=== PATIENT | female | born 1935 | race Caucasian/White ===

== ENCOUNTER → 2017-01-28 | Outpatient (CLI) | payer MEDICARE, OTHER | END | disposition home or self-care (01) | LOC: PCVCCLINIC 16:00 | PROVIDERS: ATTEND Internal Medicine | DX: I45.5 Other specified heart block (principal); E78.5 Hyperlipidemia, unspecified; I49.5 Sick sinus syndrome; F03.90 Unspecified dementia, unspecified severity, without behavioral disturbance, psychotic disturbance, mood disturbance, and anxiety; F41.9 Anxiety disorder, unspecified; Z95.0 Presence of cardiac pacemaker | CPT/HCPCS: 80061; 93005; G0463 ==

== ENCOUNTER → 2018-01-28 | Outpatient (CLI) | payer MEDICARE, OTHER | END | disposition home or self-care (01) | LOC: PCVCCLINIC 15:22 | DX: I45.9 Conduction disorder, unspecified (principal); I49.5 Sick sinus syndrome; E78.5 Hyperlipidemia, unspecified; Z95.0 Presence of cardiac pacemaker; Z79.82 Long term (current) use of aspirin | CPT/HCPCS: 80061; 93005; G0463 ==

== ENCOUNTER → 2019-02-03 | Outpatient (CLI) | payer MEDICARE, OTHER | END | disposition home or self-care (01) | LOC: PCVCCLINIC 14:00 | PROVIDERS: ATTEND Internal Medicine | DX: I45.9 Conduction disorder, unspecified (principal); E78.5 Hyperlipidemia, unspecified; I49.5 Sick sinus syndrome; Z95.0 Presence of cardiac pacemaker; Z88.6 Allergy status to analgesic agent | CPT/HCPCS: 36415; 80061; 93005; 93280; G0463 ==

== ENCOUNTER → 2019-05-19 | Outpatient (CLI) | payer MEDICARE, OTHER | END | disposition home or self-care (01) | LOC: PCVCCLINIC 14:00 | PROVIDERS: ATTEND Internal Medicine | DX: Z48.812 Encounter for surgical aftercare following surgery on the circulatory system (principal); I49.5 Sick sinus syndrome; Z95.0 Presence of cardiac pacemaker | CPT/HCPCS: 93280 ==